=== PATIENT | male | born 1965 | race Caucasian/White ===

== ENCOUNTER 2022-05-02 06:09 | Emergency (ER) | payer SELFPAY ==
[2022-05-02 06:25] VITALS: BP 143/85; PULSE 66
[2022-05-02] MEDS ORDERED: Diphtheria,Pertussis(Acell),Tetanus Vaccine 0.5 ML Syringe IM ONE (07:03)
== END 2022-05-02 07:40 | disposition home or self-care (01) ==
LOC: JD.ED 06:09
DX: S90.812A Abrasion, left foot, initial encounter (principal); L03.116 Cellulitis of left lower limb; F17.210 Nicotine dependence, cigarettes, uncomplicated; Z23 Encounter for immunization
CPT/HCPCS: 90471; 90715; 99283-25

== ENCOUNTER 2024-08-11 14:21 | Emergency (ER) | payer SELFPAY ==
[2024-08-11] MEDS ORDERED: Sodium Chloride 0.9% 10 ML Syringe FLUSH PRN (14:52)
[2024-08-11] MEDS ORDERED: Sodium Chloride 0.9% 100 ML IV SCH (15:15)
[2024-08-11] MEDS: Iopamidol 755 Mg/ML 100 ML Bottle IVPUSH ONE (15:17)
[2024-08-11 17:07] VITALS: BP 142/102; PULSE 78
== END 2024-08-11 16:49 | disposition home or self-care (01) ==
LOC: JD.ED 14:21
DX: J18.9 Pneumonia, unspecified organism (principal); I25.10 Atherosclerotic heart disease of native coronary artery without angina pectoris; R91.1 Solitary pulmonary nodule; F17.210 Nicotine dependence, cigarettes, uncomplicated
CPT/HCPCS: 71275; 71275-26; 99285; Q9967

== ENCOUNTER 2024-10-05 11:27 | Emergency (ER) | payer SELFPAY ==
[2024-10-05] MEDS: Sodium Chloride 0.9% 10 ML Syringe FLUSH PRN (12:21)
[2024-10-05 12:31] LABS: BASOPHILS ABSOLUTE AUTO 0.1 K/mm3 (0.0-0.2); BASOPHILS PERCENT AUTO 0.7 % (0.0-1.0); EOSINOPHILS ABSOLUTE AUTO 0.1 K/mm3 (0.0-0.4); EOSINOPHILS PERCENT AUTO 0.8 % (0.0-6.0); HEMATOCRIT 45.2 % (42.0-52.0); IMMATURE GRAN ABSOLUTE AUTO 0.02 K/mm3 (0.00-0.05); IMMATURE GRAN PERCENT AUTO 0.2 % (0.0-0.4); LYMPHOCYTES ABSOLUTE AUTO 2.5 K/mm3 (1.0-4.8); LYMPHOCYTES PERCENT AUTO 30.1 % (24.0-44.0); MEAN CORPUSCULAR HEMOGLOBIN 30.2 pg (28.0-32.0); MEAN CORPUSCULAR HGB CONC 33.2 g/dl (32.0-36.0); MEAN CORPUSCULAR VOLUME 90.9 fl (83.0-99.0); MEAN PLATELET VOLUME 9.9 fl (9.4-12.4); MONOCYTES ABSOLUTE AUTO 0.6 K/mm3 (0.0-0.8); MONOCYTES PERCENT AUTO 6.9 % (0.0-8.0); NEUTROPHILS ABSOLUTE AUTO 5.2 K/mm3 (1.8-7.7); NEUTROPHILS PERCENT AUTO 61.3 % (41.0-71.0); PLATELET COUNT,PLT 263 K/mm3 (150-400); RED BLOOD CELL COUNT 4.97 M/mm3 (4.52-5.90); WHITE BLOOD CELL COUNT,WBC 8.44 K/mm3 (3.9-11.3)
[2024-10-05] MEDS: Aspirin 81 MG Tab.Chew PO ONE (12:42)
[2024-10-05 13:06] LABS: A/G RATIO 1.1 (1-2); ALBUMIN 3.7 g/dl (3.4-5.0); ANION GAP 14.4 (5-15); BILIRUBIN TOTAL 0.6 mg/dL (0.2-1.0); BUN/CREATININE RATIO 17.3 (14-18); CALCIUM 8.7 mg/dL (8.5-10.1); CREATININE 1.1 mg/dL (0.7-1.3); EST CRCL DRUG DOSING (CG) 70.52 mL/min; POTASSIUM,K 4.4 mEq/L (3.5-5.1)
[2024-10-05 17:01] VITALS: BP 134/86; PULSE 83
== END 2024-10-05 15:45 | disposition home or self-care (01) ==
LOC: JD.ED 11:27
DX: R07.89 Other chest pain (principal); I25.2 Old myocardial infarction; F17.210 Nicotine dependence, cigarettes, uncomplicated
CPT/HCPCS: 36415; 71046; 80053; 84484; 85025; 93005; 99285; A9270